=== PATIENT | male | born 1975 | race Caucasian/White ===

== ENCOUNTER 2020-01-06 13:14 | Emergency (ER) | payer MEDICAID ==
[~2020-01-06] VITALS: Ht 180.3 cm; Wt 136.4 kg
[2020-01-06 13:17] VITALS: BP 112/69
[2020-01-06] MEDS ORDERED: CYCL-1 PO (13:53)
[2020-01-06] MEDS ORDERED: TRAM50TA2 PO (13:53)
== END 2020-01-06 14:11 | disposition home or self-care (01) ==
LOC: ER 13:15
DX: M25.511 Pain in right shoulder (principal); Z60.2 Problems related to living alone; Z79.899 Other long term (current) drug therapy; X50.9XXA Other and unspecified overexertion or strenuous movements or postures, initial encounter; Y93.89 Activity, other specified; Y92.89 Other specified places as the place of occurrence of the external cause; Y99.8 Other external cause status
CPT/HCPCS: 73030; 99283